=== PATIENT | female | born 1985 | race Caucasian/White ===

== ENCOUNTER 2021-12-29 07:41 | Outpatient (CLI) | payer BC, SELFPAY ==
--- NOTE | ~2021-12-29 | NM_ITS ---
EXAMINATION: NM hepatobiliary wo pharm DATE: 12/29/2021 10:42 INDICATION: Right upper quadrant abdominal pain. COMPARISON: None. TECHNIQUE: 5 mCi Tc-99m mebrofenin (Choletec) was administered intravenously. Scintigraphic images o f the abdomen were obtained for one hour. Then, the patient drank 8 oz Ensure, and imaging was contin ued for 60 minutes. FINDINGS: There is normal clearance of radiotracer from the blood pool. There is homogeneous tracer u ptake by the liver. Activity progresses to the bowel and gallbladder. Gallbladder ejection fraction (GBEF) was 37%. Note that with this technique, normal GBEF >= 33%. IMPRESSION: 1. Normal hepatobiliary scintigraphy. Reviewed, dictated and finalized at location A. [facility] [employer]
== END 2021-12-29 07:42 | disposition home or self-care (01) ==
LOC: ANHIMG 07:44
PROVIDERS: PCP Physician Assistant; Visit Provider Nurse Practitioner Family
DX: R10.11 Right upper quadrant pain (principal)
CPT/HCPCS: 78226; A9537

== ENCOUNTER 2022-01-12 00:33 | Day surgery (SDC) | payer BC, SELFPAY ==
[2022-01-04 14:39] VITALS: BMI 38.5
[2022-01-12 09:00] VITALS: BP 124/89; PULSE 90; RESP 18; TEMP 36.3; O2SAT 100
[2022-01-12] MEDS: LACTATED RINGERS 1,000 ML 150 ML IV CONT (09:13)
--- NOTE | 2022-01-12 09:19 | WPDANESEPPF ---
Anes - Initial Pre Proc Eval Procedure: Operation Date: 01/12/22 10:00 Proposed Procedures p Esophagogastroduodenoscopy - Fabio Castorena MD Date/Time: 01/12/22 09:19 Surgeon: Fabio Castorena MD Pre Op Diagnosis: Right UQP Patient Data Age: 36 Gender: F Height: 1.65 m Weight: 110.6 kg Last Vital Signs Temp 36.3 C L 01/12/22 09:00 Pulse 90 01/12/22 09:00 Resp 18 01/12/22 09:00 BP 124/89 01/12/22 09:00 Pulse Ox 100 01/12/22 09:00 Allergies Allergy/AdvReac Type Severity Reaction Status Date / Time No Known Allergies Allergy Verified 01/12/22 08:59 Home Medications Medication Instructions Recorded Confirmed Type No Home Medications 12/09/21 12/09/21 History Patient hx anesthesia problems: none Family hx anesthesia problems: none Results Review: All pre-operative results and documents have been reviewed as part of the pre-operative evaluation. PMFSH Past Medical History Medical History Asthma Morbid obesity Right upper quadrant abdominal pain Smoker Surgical History Surgical History (Updated 01/12/22 @ 09:20 by Lazaro Ndiyae MD) H/O arthroscopic knee surgery Social History Social History Smoking status: Current every day smoker Tobacco type: e-cigarettes/vaping Alcohol intake: current Drinks per week: 3 Alcohol use details: social Substance use: never Living arrangements: with family Spiritual care concerns: No Anes - Eval Final PreProcedure Day of Procedure 01/12/22 09:19 Patient weight: morbidly obese Heart: regular rate and rhythm Lungs: clear to auscultation Airway: Mallampati scale class II Neurological: alert and oriented Last oral intake: >/= 8 hours ASA classification: III Emergent: no Anesthetic plan: proceed Anesthesia type and monitoring: general GIVS and standard monitoring Results Review: All pre-operative results and documents have been reviewed as part of the pre-operative evaluation. Informed Consent: The patient's anesthetic plan and its attendant risks and benefits were discussed with the patient/family/POA. Questions were solicited and answers provided to the satisfaction of the patient/family/POA.
--- NOTE | 2022-01-12 09:41 | PM.HPGS ---
History of Present Illness History of Present Illness Consent: Risks, benefits, and alternatives have been discussed and questions answered. Patient agrees to proceed with procedure. Chief complaint: Right UQP Narrative: Florentin Yip is a 36 year old female with intermittent ruq pain, CT scan and hida scan normal, it is not affected by eating or fasting. Tried round of steroid that helped some- ? MSK Review of Systems Constitutional: Constitutional: Denies headache(s) and Denies weakness Eyes: Eyes: Denies blurry vision ENT: Reports Normal hearing present, Denies headache(s) and Denies neck pain Cardiovascular: Cardiovascular: Denies chest pain and Denies dyspnea Respiratory: Respiratory: Denies dyspnea Gastrointestinal: Gastrointestinal: Reports no additional gastrointestinal complaints Genitourinary: Genitourinary: Denies dysuria Musculoskeletal: Musculoskeletal: Denies neck pain Integumentary/Breasts: Skin/Breast: Denies dry skin Neurologic: Reports Normal hearing present, Denies headache(s) and Denies weakness Psychiatric: Psychiatric: Denies anxiety Endocrine: Endocrine: Denies change in body appearance Hematologic/Lymphatic: Hematologic/Lymphatic: Denies easy bleeding Allergic/Immunologic: Allergic/Immunologic: Denies urticaria PMFSH Past Medical History Medical History Asthma Morbid obesity Right upper quadrant abdominal pain Smoker Surgical History Surgical History (Updated 01/12/22 @ 09:20 by Lazaro Ndiaye MD) H/O arthroscopic knee surgery Social History Social History Smoking status: Current every day smoker Tobacco type: e-cigarettes/vaping Alcohol intake: current Drinks per week: 3 Alcohol use details: social Substance use: never Living arrangements: with family Spiritual care concerns: No Meds Home Medications and Allergies Home Medications Medication Instructions Recorded Confirmed Type No Home Medications 12/09/21 12/09/21 History Allergies Allergy/AdvReac Type Severity Reaction Status Date / Time No Known Allergies Allergy Verified 01/12/22 08:59 Vital Signs Vital Signs - 24 hr 01/12/22 09:00 Temperature 97.4 F L Pulse Rate 90 Respiratory Rate 18 Blood Pressure 124/89 Pulse Oximetry 100 Exam Const: General: comfortable and no acute distress HENMT: General nose exam: Normal nares present Eyes: General: appearance normal, both eyes and all related structures Neck: Neck: no JVD Resp: Auscultation: clear to auscultation bilaterally Cardio: Rate: regular rate Rhythm: regular rhythm GI: Inspection: non-distended GI Palp: Yes Soft to palpation Skin: General skin exam: normal color Neuro: General: gait normal Speech: normal speech Extrem: General: normal to inspection Psych: Mental Status: mental status grossly normal Assessment and Plan Assessment and plan (1) Right upper quadrant abdominal pain: Code(s): R10.11 - Right upper quadrant pain Status: Acute Assessment and Plan: egd with bx, assess if pud, h pylori, etc (2) Morbid obesity: Code(s): E66.01 - Morbid (severe) obesity due to excess calories Status: Inactive
[2022-01-12 10:00] VITALS: BP 123/75; PULSE 104; RESP 20; O2SAT 100
[2022-01-12 10:10] VITALS: BP 124/82; PULSE 87; RESP 19; O2SAT 100
[2022-01-12 10:20] VITALS: BP 111/71; PULSE 85; RESP 20; O2SAT 100
== END 2022-01-12 10:39 | disposition home or self-care (01) ==
PROVIDERS: PCP Physician Assistant; Visit Provider Internal Medicine Gastroenterology
PROC: 0DJ08ZZ Inspection of Upper Intestinal Tract, Via Natural or Artificial Opening Endoscopic (ICD-10-PCS; CPT 43235; principal; 2022-01-12 10:00)
DX: K29.70 Gastritis, unspecified, without bleeding (principal); F17.290 Nicotine dependence, other tobacco product, uncomplicated; E66.01 Morbid (severe) obesity due to excess calories; Z68.41 Body mass index [BMI] 40.0-44.9, adult
CPT/HCPCS: 43239; 88305; J2001; J2704; J7120

== ENCOUNTER 2024-08-15 23:35 | Emergency (ER) | payer BC, SELFPAY ==
[2024-08-15] VITALS (7 sets, daily range): BP systolic 134–140; BP diastolic 92–93; PULSE 122–131; RESP 16–25; TEMP 36.4; O2SAT 90–93
--- NOTE | ~2024-08-15 | XR_ITS ---
EXAMINATION: XR chest 1V portable DATE: 08/15/2024 23:46 INDICATION: Shortness of breath. TECHNIQUE: A single frontal view of the chest was obtained. COMPARISON: None. FINDINGS: There is no pneumonia, pleural effusion, or pneumothorax. The heart size is normal. IMPRESSION: 1. No acute cardiopulmonary disease. Reviewed, dictated and finalized at location A.
--- NOTE | 2024-08-15 23:42 | ECG_ITS ---
Test Date: 2024-08-15 23:48:31 Measurements Intervals [place] Rate: 123 P: 85 [place]: 147 QRS: 42 QRSD: 74 T: 54 QT: 337 QTc: 483 Interpretive Statements SINUS TACHYCARDIA LOW QRS VOLTAGE IN PRECORDIAL LEADS [QRS DEFLECTION < 1.0 mV IN CHEST LEADS] ABNORMAL RHYTHM ECG No previous ECG available for comparison Electronically Signed On 08-16-2024 13:30:29 CDT by Tyler Alvarez M.D.
--- NOTE | 2024-08-15 23:55 | PC.NURSE ---
COVID PCR obtained and taken to lab
[2024-08-15] MEDS: IPRATROPIUM 0.5 MG/ALBUTEROL SULFATE 2.5 MG AMPUL.NEB 3 ML INHALATION (23:58)
[2024-08-16] VITALS (11 sets, daily range): BP systolic 127–136; BP diastolic 82–86; PULSE 112–123; RESP 18–29; O2SAT 86–100
[2024-08-16 00:09] LABS: Base Excess ABG -5.5 mmol/L (0-2); HCO3 ABG 18.4 mmol/L (23-29); Oxygen Content ABG 19.6 %vol (16.0-22.0); Oxygen Saturation ABG 90.8 % (95-97); Oxyhemoglobin 90.2 % (94-100); PCO2 ABG 31.7 mmHg (35-45); PO2 ABG 62.3 mmHg (80-90); pH ABG 7.38 (7.35-7.45)
--- NOTE | 2024-08-16 00:09 | PC.NURSE ---
pt aware a urine sample is needed. pt unable to urinate at this time
[2024-08-16 00:11] LABS: Basophils Absolute Auto 0.07 K/mm3 (0.00-0.10); Basophils Percent Auto 0.6 % (0.0-1.0); Eosinophils Absolute Auto 0.58 K/mm3 (0.02-0.50); Eosinophils Percent Auto 5.3 % (1.0-6.0); Hematocrit 45.2 % (35.0-49.0); Immature Granulocyte Absolute 0.04 K/mm3 (0.00-0.00); Immature Granulocyte Percent A 0.4 % (0.0-0.0); Lymphocytes Absolute Auto 2.69 K/mm3 (1.10-4.50); Lymphocytes Percent Auto 24.7 % (18.0-42.0); Mean Corpuscular HGB Conc 33.2 g/dL (32-36); Mean Corpuscular Hemoglobin 33.6 pg (27.0-31.0); Mean Corpuscular Volume 101.1 fL (78.0-102.0); Mean Platelet Volume 9.7 fl (9.2-11.8); Monocytes Absolute Auto 0.52 K/mm3 (0.10-0.90); Monocytes Percent Auto 4.8 % (2.0-11.0); Neutrophils Absolute Auto 6.97 K/mm3 (1.70-7.20); Neutrophils Percent Auto 64.2 % (50.0-70.0); Platelet Count Result 242 K/mm3 (150-420); Red Blood Count 4.47 M/mm3 (4.20-5.40); Red Cell Distribution Width 12.4 % (11.6-14.4); White Blood Count 10.9 K/mm3 (4.8-10.8)
--- NOTE | 2024-08-16 00:19 | ED.SOB ---
HPI - SOB/Dyspnea General Chief Complaint: Shortness of Breath/Dyspnea Stated Complaint: respiratory distress Time Seen by Provider: 08/15/24 23:41 Source: patient and EMS Mode of arrival: EMS Limitations: no limitations History of Present Illness HPI Narrative: this is a 39-year-old female with a history of asthma presents via EMS with asthma exacerbation started early this morning, patient does not smoke but does vape. EMS was called to her residence with severe dyspnea and patient was placed on CPAP and oxygen was given breathing treatment IV was started and given Solu-Medrol and magnesium. Patient denies cough or nasal congestion denies fever chills no nausea vomiting abdominal pain no chest pain. MD elicited complaint: shortness of breath Pertinent past history: asthma Onset (ago): hour(s) Timing: constant Severity: severe Relieving factors: oxygen, bronchodilators, upright position and medication Known history of: asthma Associated symptoms: denies other symptoms Related Data Home Medications Medication Instructions Recorded Confirmed atorvastatin 20 mg tablet 20 mg PO DAILY 08/15/24 08/15/24 fenofibrate 160 mg tablet 160 mg PO DAILY 08/15/24 08/16/24 albuterol sulfate 90 mcg/actuation 90 inh inhalation DIRECTED 08/16/24 08/16/24 aerosol inhaler escitalopram oxalate 10 mg tablet 10 mg PO DAILY 08/16/24 08/16/24 fluvoxamine 100 mg tablet 100 mg PO DAILY 08/16/24 08/16/24 trazodone 50 mg tablet 50 mg PO DAILY 08/16/24 08/16/24 Allergies Allergy/AdvReac Type Severity Reaction Status Date / Time No Known Allergies Allergy Verified 08/15/24 23:56 Review of Systems Review of Systems: All systems reviewed & are unremarkable except as noted in HPI and below PMFSH Past Medical History Medical History Asthma Morbid obesity Right upper quadrant abdominal pain Smoker Surgical History Surgical History H/O arthroscopic knee surgery Social History Social History Smoking status: Current every day smoker Tobacco type: e-cigarettes/vaping Alcohol intake: current Drinks per week: 3 Alcohol use details: social Substance use: never Living arrangements: with family Spiritual care concerns: No Exam Const: General: healthy appearing, no acute distress and alert Nutritional Appearance: well nourished and obese Orientation/consciousness: patient oriented x3 Limitations: no limitations HENMT: Head: normal to inspection Neck: Neck: normal visual inspection, no lymphadenopathy and no meningeal signs Chest: Chest palpation & inspection: normal inspection of the chest Resp: Effort & Inspection: normal respiratory effort Auscultation: wheezes Cardio: Rate: tachycardic Rhythm: regular rhythm GI: GI Palp: Yes Soft to palpation Auscultation: normal bowel sounds : General: Yes bladder normal to palpation Skin: General skin exam: normal color Rashes: no rashes Neuro: General: patient oriented x3, moves all extremities and no meningeal signs Extrem: General: normal to inspection and no clubbing, cyanosis or edema Course Course Emergency Course: Patient's symptoms have improved after stack DuoNebs 3 DuoNebs, continue CPAP with O2, magnesium 2g administered as well as 125 Solu-Medrol and epinephrine. Current vital signs have improved a blood pressure 132/86, heart rate 120 respiratory rate 20 O2 sats 94%. X-ray performed shows no acute cardiopulmonary abnormalities, EKG normal rhythm with sinus tachy. Vital Signs Vital signs: Vital Signs Pulse Rate 126 H 08/15/24 23:35 Pulse Oximetry 92 08/15/24 23:35 Oxygen Delivery EMS-CPAP 08/15/24 23:35 Temperature 36.4 C 08/15/24 23:41 Pulse Rate 122 H 08/16/24 00:45 Respiratory Rate 26 H 08/16/24 00:45 Blood Pressure 127/82 08/16/24 00:31 Pulse Oximetry 100 08/16/24 00:31 Oxygen Delivery CPAP
[2024-08-16 00:21] LABS: Device SIMPLE MASK; Modified Allen's Test Pass; Site Drawn RIGHT RADIAL
--- NOTE | 2024-08-16 00:26 | PC.NURSE ---
RT at bedside switching out Cpap machines. Patient tolerated well.
[2024-08-16 00:28] LABS: Partial Thromboplastin Time 29.6 Sec (23.9-30.70)
[2024-08-16] MEDS: ALBUTEROL SULFATE NEB 2.5 MG/3 ML INH INHALATION (00:39)
[2024-08-16 00:51] LABS: Add Urine Microscopic? NO; Appearance Urine Clear (Clear); Bilirubin Urine Negative (Negative); Blood Urine Negative (Negative); Color Urine Light Yellow (Yellow); Glucose Urine UA Negative (Negative); Ketones Urine Negative (Negative); Leukocyte Esterase Ur Negative LEU/UL (Negative); Nitrate Urine Negative (Negative); Protein Urine Negative (Negative); Specific Grav Ur >= 1.030 (1.010-1.020); Urobilinogen Urine 0.2 mg/dL (0.2-1.0)
[2024-08-16 00:52] LABS: Alanine Aminotransferase 30 U/L (14-59); Albumin Level 3.7 g/dL (3.4-5.0); Alkaline Phosphatase 67 U/L (46-116); Anion Gap 14 mmol/L (4-12); Aspartate Amino Transferase 18 U/L (15-37); Bilirubin,Total 0.3 mg/dL (0.00-1.00); Blood Urea Nitrogen 10 mg/dL (7-18); Calcium 8.9 mg/dL (8.5-10.1); Carbon Dioxide 25 mmol/L (21-32); Chloride 103 mmol/L (98-108); Estimated CRCL calculation 107 ml/min; Estimated Glomerular Filt Rate > 60; Glucose 127 mg/dL (70-99); Lactic Acid Reflex 1.5 mmol/L (0.4-2.0); Magnesium 2.6 mg/dL (1.8-2.4); NT Pro B Type Natriuretic Pept 78 pg/mL (0-125); Osmolality Calculated 295 mOsm/kg (285-295); Potassium 3.3 mmol/L (3.5-5.1); Sodium 142 mmol/L (136-145); Total Protein 7.3 g/dL (6.4-8.2); Troponin I 6.9 ng/L (0.00-60.4)
[2024-08-16 00:53] LABS: Influenza A QL RT-PCR Negative (Negative); Influenza B QL RT-PCR Negative (Negative); RSV RNA, RT-PCR Negative (Negative); SARS-CoV-2 RNA PCR Negative (Negative)
--- NOTE | 2024-08-16 06:51 | PC.NURSE ---
see downtime documentation for discharge dispo and charting during downtime
--- NOTE | 2024-08-18 12:47 | PC.NURSE ---
preliminary blood cultures x2 reviewed. no growth to date
== END 2024-08-16 02:47 | disposition short-term general hospital (02) ==
PROVIDERS: Emergency Provider Emergency Medicine; PCP Physician Assistant
DX: J45.901 Unspecified asthma with (acute) exacerbation (principal); F17.290 Nicotine dependence, other tobacco product, uncomplicated; Z79.899 Other long term (current) drug therapy; Z20.822 Contact with and (suspected) exposure to COVID-19
CPT/HCPCS: 36415; 36600; 71045; 80053; 81003; 82805; 83605; 83735; 83880; 84484; 85018; 85025; 85380; 85610; 85730; 87040; 87637; 93005; 94640; 99285